=== PATIENT | male | born 1995 | race Caucasian/White ===

== ENCOUNTER 2020-01-17 22:03 | Emergency (ER) | payer BC ==
[~2020-01-17] VITALS: Ht 193 cm; Wt 81.8 kg
[2020-01-17 22:49] VITALS: TEMP 98.3
[2020-01-17 23:19] VITALS: BP 111/56
[2020-01-17 23:36] LABS: COLLECTION METHOD CLEAN CATCH
[2020-01-17 23:44] LABS: MUCOUS Present /lpf; PH 6 (5-8); SQUAMOUS EPITHELIAL None Seen /hpf; URINE APPEARANCE Clear; URINE BACTERIA None Seen /hpf; URINE BILIRUBIN Negative (NEGATIVE); URINE BLOOD Negative (NEGATIVE); URINE COLOR Yellow; URINE GLUCOSE Negative (NEGATIVE); URINE KETONE Trace (NEGATIVE); URINE LEUKOCYTE ESTERASE Trace (NEGATIVE); URINE NITRATE Negative (NEGATIVE); URINE PROTEIN(semi-quant) Negative (NEGATIVE); URINE RBC 0-2 /hpf; URINE UROBILINOGEN Negative (NEGATIVE)
[2020-01-17 23:47] LABS: BASO % 0.2 % (0.0-2.0); BILIRUBIN,TOTAL 0.9 mg/dL (0.0-1.0); CALCIUM 9.6 mg/dL (8.4-10.2); CREATININE, serum 0.82 (0.66-1.25); EOS # 0.1 (0.0-0.7); EOS % 1.2 % (0-4.0); GRAN # 7.9 (1.4-6.5); HEMATOCRIT 45.2 % (42.0-52.0); HEMOGLOBIN 15.7 g/dl (13.5-18.0); LYMPH # 1.7 (1.2-3.4); LYMPH % 16.5 % (20.0-51.0); MEAN CELL VOLUME 84 fl (80.0-100.0); MEAN CORPUSCULAR HEMOGLOBIN 29 pg (27.0-31.0); MEAN CORPUSCULAR HGB CONC 35 g/dl (33.0-37.0); MEAN PLATELET VOLUME 11.7 fl (7.4-10.4); MONO # 0.6 (0.1-0.6); MONO % 5.9 % (1.7-9.3); PLATELET COUNT 183 K/mm3 (130-400); POTASSIUM 3.9 mmol/L (3.4-5.0); REDCELL DISTRIBUTION WIDTH-CV 12.4 % (11.5-14.5); TOTAL PROTEIN 8.4 gm/dL (6.4-8.2)
[2020-01-17 23:53] LABS: TRICYCLIC ANTIDEPRESS URINE NEGATIVE
[2020-01-18] MEDS ORDERED: ZITHROMAX 250M250 MG PO (01:00)
[2020-01-18 01:21] VITALS: PULSE 75
== END 2020-01-18 01:21 | disposition home or self-care (01) ==
LOC: COL.ER 22:03
PROVIDERS: Nurse Practitioner Primary Care
DX: R42 Dizziness and giddiness (principal); N34.2 Other urethritis
CPT/HCPCS: J0696; J7030

== ENCOUNTER 2020-02-16 11:30 | Emergency (ER) | payer BC ==
[~2020-02-16] VITALS: Ht 193 cm; Wt 81.8 kg
[~2020-02-16 11:30] MED LIST: ZITHROMAX 250M250 MG PO
[2020-02-16 11:36] VITALS: TEMP 97.8
[2020-02-16 12:20] LABS: BASO % 0.2 % (0.0-2.0); EOS # 0.1 (0.0-0.7); EOS % 2.8 % (0-4.0); GRAN # 3.4 (1.4-6.5); HEMATOCRIT 45.1 % (42.0-52.0); HEMOGLOBIN 15.4 g/dl (13.5-18.0); LYMPH # 1.1 (1.2-3.4); LYMPH % 21.8 % (20.0-51.0); MEAN CELL VOLUME 85 fl (80.0-100.0); MEAN CORPUSCULAR HEMOGLOBIN 29 pg (27.0-31.0); MEAN CORPUSCULAR HGB CONC 34 g/dl (33.0-37.0); MEAN PLATELET VOLUME 11.5 fl (7.4-10.4); MONO # 0.4 (0.1-0.6); PLATELET COUNT 128 K/mm3 (130-400); RED BLOOD COUNT 5.28 M/mm3 (4.20-5.60)
[2020-02-16 12:31] LABS: ALANINE AMINOTRANSFERASE 16 U/L (4-49); ALBUMIN 4.6 gm/dL (3.5-5.0); ALKALINE PHOSPHATASE 42 U/L (50-136); ANION GAP 9 mmol/L (7-16); AST,SGOT 23 U/L (15-37); BILIRUBIN,TOTAL 0.8 mg/dL (0.0-1.0); BLOOD UREA NITROGEN 18 mg/dL (9-20); CALCIUM 9.5 mg/dL (8.4-10.2); CARBON DIOXIDE 25 mmol/L (22-30); CHLORIDE 104 mmol/L (98-107); CREATININE, serum 0.76 (0.66-1.25); GLUCOSE 96 mg/dL (74-106); LIPASE 41 U/L (23-300); POTASSIUM 4.4 mmol/L (3.4-5.0); SODIUM 138 mmol/L (137-145); TOTAL PROTEIN 7.5 gm/dL (6.4-8.2)
[2020-02-16 13:06] LABS: C-REACTIVE PROTEIN < 0.5 mg/dL (0.0-0.9)
[2020-02-16 13:35] LABS: COLLECTION METHOD CLEAN CATCH
[2020-02-16 13:47] LABS: MUCOUS Present /lpf; PH 5 (5-8); SQUAMOUS EPITHELIAL None Seen /hpf; URINE APPEARANCE Clear; URINE BACTERIA None Seen /hpf; URINE BILIRUBIN Negative (NEGATIVE); URINE BLOOD Negative (NEGATIVE); URINE COLOR Yellow; URINE GLUCOSE Negative (NEGATIVE); URINE KETONE Negative (NEGATIVE); URINE LEUKOCYTE ESTERASE Negative (NEGATIVE); URINE NITRATE Negative (NEGATIVE); URINE PROTEIN(semi-quant) Negative (NEGATIVE); URINE RBC 0-2 /hpf; URINE UROBILINOGEN Negative (NEGATIVE)
[2020-02-16] MEDS ORDERED: PRIL40 PO (14:08)
[2020-02-16 14:30] VITALS: BP 108/80; PULSE 78
== END 2020-02-16 14:30 | disposition home or self-care (01) ==
LOC: COL.ER 11:30
PROVIDERS: Nurse Practitioner Primary Care
DX: K29.70 Gastritis, unspecified, without bleeding (principal); Z86.79 Personal history of other diseases of the circulatory system
CPT/HCPCS: J7030

== ENCOUNTER 2020-02-25 23:41 | Emergency (ER) | payer BC ==
[~2020-02-25 23:41] MED LIST changes: +PRIL40 PO
[2020-02-25 23:47] VITALS: BP 134/88; TEMP 98.8
[2020-02-26 00:14] LABS: BASO % 0.3 % (0.0-2.0); EOS # 0.1 (0.0-0.7); EOS % 1.5 % (0-4.0); GRAN # 4.6 (1.4-6.5); GRAN % 70.2 % (42.2-75.2); HEMATOCRIT 41.3 % (42.0-52.0); HEMOGLOBIN 14.2 g/dl (13.5-18.0); LYMPH # 1.3 (1.2-3.4); LYMPH % 20.4 % (20.0-51.0); MEAN CELL VOLUME 86 fl (80.0-100.0); MEAN CORPUSCULAR HEMOGLOBIN 30 pg (27.0-31.0); MEAN CORPUSCULAR HGB CONC 34 g/dl (33.0-37.0); MEAN PLATELET VOLUME 11.8 fl (7.4-10.4); MONO # 0.5 (0.1-0.6); MONO % 7.3 % (1.7-9.3); PLATELET COUNT 136 K/mm3 (130-400); RED BLOOD COUNT 4.81 M/mm3 (4.20-5.60); REDCELL DISTRIBUTION WIDTH-CV 12.7 % (11.5-14.5)
[2020-02-26 00:23] LABS: ALBUMIN 4.6 gm/dL (3.5-5.0); BILIRUBIN,TOTAL 0.5 mg/dL (0.0-1.0); CALCIUM 9.2 mg/dL (8.4-10.2); CREATININE, serum 0.9 (0.66-1.25); POTASSIUM 3.9 mmol/L (3.4-5.0); TOTAL PROTEIN 7.4 gm/dL (6.4-8.2)
[2020-02-26 01:35] VITALS: PULSE 69
== END 2020-02-26 01:35 | disposition home or self-care (01) ==
LOC: COL.ER 23:41
PROVIDERS: Physician Assistant
DX: R10.13 Epigastric pain (principal); R19.5 Other fecal abnormalities; R11.0 Nausea
CPT/HCPCS: J7030

== ENCOUNTER 2020-02-28 21:15 | Emergency (ER) | payer BC ==
[~2020-02-28] VITALS: Ht 193 cm; Wt 81.8 kg
[2020-02-28 21:22] VITALS: TEMP 97.8
[2020-02-28 22:03] LABS: BASO % 0.3 % (0.0-2.0); EOS # 0.1 (0.0-0.7); GRAN # 5.2 (1.4-6.5); GRAN % 72.3 % (42.2-75.2); HEMOGLOBIN 14.6 g/dl (13.5-18.0); LYMPH # 1.3 (1.2-3.4); LYMPH % 18.6 % (20.0-51.0); MEAN CELL VOLUME 86 fl (80.0-100.0); MEAN CORPUSCULAR HEMOGLOBIN 29 pg (27.0-31.0); MEAN CORPUSCULAR HGB CONC 34 g/dl (33.0-37.0); MONO # 0.5 (0.1-0.6); MONO % 6.5 % (1.7-9.3); PLATELET COUNT 124 K/mm3 (130-400); RED BLOOD COUNT 4.98 M/mm3 (4.20-5.60); REDCELL DISTRIBUTION WIDTH-CV 12.9 % (11.5-14.5)
[2020-02-28 22:16] LABS: ALANINE AMINOTRANSFERASE 14 U/L (4-49); ALBUMIN 4.7 gm/dL (3.5-5.0); ALKALINE PHOSPHATASE 41 U/L (50-136); ANION GAP 10 mmol/L (7-16); AST,SGOT 22 U/L (15-37); BILIRUBIN,TOTAL 0.6 mg/dL (0.0-1.0); BLOOD UREA NITROGEN 20 mg/dL (9-20); C-REACTIVE PROTEIN < 0.5 mg/dL (0.0-0.9); CALCIUM 9.5 mg/dL (8.4-10.2); CARBON DIOXIDE 27 mmol/L (22-30); CHLORIDE 103 mmol/L (98-107); CREATININE, serum 0.82 (0.66-1.25); GLUCOSE 100 mg/dL (74-106); POTASSIUM 3.7 mmol/L (3.4-5.0); SODIUM 140 mmol/L (137-145); TOTAL PROTEIN 7.4 gm/dL (6.4-8.2)
[2020-02-28 22:22] LABS: ERYTHROCYTE SEDIMENTATION RATE 7 mm/hr (0-15)
[2020-02-28] MEDS ORDERED: CARAFATE 1GM1 G PO (22:35)
[2020-02-28] MEDS ORDERED: PRIL40 PO (22:35)
[2020-02-28 23:44] VITALS: BP 125/62; PULSE 59
== END 2020-02-28 23:44 | disposition home or self-care (01) ==
LOC: COL.ER 21:15
PROVIDERS: Emergency Medicine
DX: R10.11 Right upper quadrant pain (principal); R10.12 Left upper quadrant pain
CPT/HCPCS: C9113; J7030; Q9967